=== PATIENT | male | born 1995 | race Two or more races ===

== ENCOUNTER 2019-01-01 18:52 | Emergency (ER) | payer SELFPAY ==
[~2019-01-01] VITALS: Ht 177.8 cm; Wt 91.0 kg
[2019-01-01 18:57] VITALS: BP 152/84
[2019-01-01] MEDS ORDERED: HYDROcodone/APAP 5/325 TABLET PO ONE (19:30)
[2019-01-01] MEDS ORDERED: HYDROcodone/APAP 5/325 TABLET ONE (19:34)
== END 2019-01-01 19:12 | disposition home or self-care (01) ==
LOC: ED 19:06
DX: K02.9 Dental caries, unspecified (principal)
CPT/HCPCS: 99283

== ENCOUNTER 2019-03-09 07:58 | Emergency (ER) | payer SELFPAY ==
[~2019-03-09] VITALS: Ht 175.3 cm; Wt 97.0 kg
--- NOTE | 2019-03-09 08:08 | NUR ---
PT ARRIVED AMBULATORY TO ROOM 1. PT C/O "TOOTH PAIN. I THINK I HAVE AN ABCESS. I HAVE A FUNNY TASTE IN MY MOUTH SOMETIMES AND IT REALLY HURTS. I'M HERE FOR AN ANTIBIOTIC. IT FEELS LIKE THE SAME PAIN I HAD WHEN I HAD AN ABCESS BEFORE." PT AAO X 4, RESTING ON GURNEY, APPEARS IN NAD.
[2019-03-09] MEDS ORDERED: KETOROLAC 30 MG/1 ML IM ONE (08:30)
[2019-03-09] MEDS ORDERED: KETOROLAC 30 MG/1 ML ONE (08:38)
--- NOTE | 2019-03-09 08:42 | NUR ---
PT MEDICATED FOR PAIN, SEE MAR. PT TOLERATED WELL, NAD.
--- NOTE | 2019-03-09 08:51 | NUR ---
Patient/Caregiver given discharge instructions and they have confirmed that they understand the instructions. Patient ambulatory with steady gait.
--- NOTE | 2019-03-09 09:01 | NUR ---
TASK RN: Pt d/c with primary RN to d/c desk with steady gait and balance. NADN. Pt left ED with all personal belongings.
[2019-03-09 09:06] VITALS: BP 140/67
== END 2019-03-09 09:08 | disposition home or self-care (01) ==
LOC: ED 08:50
DX: K02.9 Dental caries, unspecified (principal); K08.89 Other specified disorders of teeth and supporting structures
CPT/HCPCS: 96372; 99283; J1885